=== PATIENT | female | born 1970 | race Caucasian/White ===

== ENCOUNTER → 2020-08-21 11:07 | Outpatient (BNVA) | payer OTHER, SELFPAY | PROVIDERS: PCP Internal Medicine; Visit Provider Hospitalist ==

== ENCOUNTER 2025-06-21 14:51 | Outpatient (AMB) | payer OTHER, SELFPAY ==
[2025-06-21 14:55] VITALS: BP 96/62; PULSE 104; O2SAT 100; BMI 26.2
--- NOTE | 2025-06-21 14:55 | MHC.OFFVIS ---
Vital Signs 06/21/25 14:55 Height 5 ft 6 in Weight 162 lb 0.636 oz BMI 26.2 BP 96/62 Blood Pressure Location Lt brachial Position Sitting Pulse 104 H Pulse Source Pulse Oximeter Pulse Oximetry (%) 100 Oxygen Delivery Method Room Air Intake Visit Reasons: Obstructive sleep apnea C Engineer Required: No Accompanied by: Self / Same As Patient Allergies doxycycline (From Vibramycin) Allergy (Severe, Verified 06/21/25 15:00) Swelling Throat HPI Comments Details: The patient is a 54-year-old woman with a known history of obstructive sleep apnea previously on CPAP in addition to morbid obesity. She did undergo gastric bypass surgery after worse she lost significant amount of weight. She did have multiple sleep studies after worsen demonstrating no evidence of any sleep apnea. At that time she stop using the CPAP. However, she still having difficulties with her daytime drowsiness. She has a hard time sleeping. He initially with an Ambien with partial improvement however she overdosed on the Ambien and therefore taken off it altogether. Currently she is taking gabapentin 600 at nighttime along with trazodone 25 mg and diazepam 2 mg q.h.s.. She states she is able to fall asleep but after sleeping the whole night she still wakes up tired. We did talk about hyper insomnia and potentially doing a multilead see sleep study but at this point we cannot do that due to the pandemic all the centers are closed that do this. Currently she is also on a stimulant anyways. She continues to have significant daytime drowsiness and headaches in the morning with an elevated [place] score of 14/24. She does have a partner who has complained of her snoring and also stay on a apneic episodes where he needs to help her time to decide to minimize the events. At this point the patient is willing to repeat the sleep study. No other medications could be added due to her significant polypharmacy and contraindications based on her past history. No evidence of any restless leg for periodic limb movement on her previous studies either. However, this should be reassessed to see if this is the potential area of treatment. In the meantime she is going to follow-up with primary care doctor about checking her all her vitamins and minerals to make sure that she is stable without any deficiencies in view of her significant surgery several years ago. The patient is here for pulmonary evaluation. The patient is a 54 year woman with known history of sleep apnea and daytime drowsiness. The patient also has a history of ADHD and does take Ritalin. The patient did have a sleep study in 2012 when she was found to have severe sleep apnea with an AHI of 53. Subsequently after that she did have gastric surgery for bariatric surgery and she lost significant amount of weight. She did have a repeat sleep study in 2018 which demonstrated no evidence of any sleep apnea. Although she did not have any significant REM sleep during the sleep study. Since she has been off her CPAP ever since then. She practices positional therapy. She does have a bed partner. She does have snoring at times. The patient does have daytime drowsiness. Specially today she does not take her Ritalin. She sometimes can take a nap and she can be sleeping 4 hours. Her [place] score usually is around 12/24. Therefore, the patient needs to have additional evaluation for underlying sleep apnea at this time. The patient also has had issues with tachycardia. Today the heart rate at rest was 103 beats per minute. And the patient denies any significant cardiac studies. Based on his significant tachyarrhythmias her significant daytime drowsiness and the REM related sleep disorder the patient does need an in-lab sleep study. Will request a in-lab sleep study this time and have her follow-up. In the meantime she has been using sleep aids including trazodone and lorazepam that appeared to be effective. Will follow-up in 3 months. [facility] Medical History (Updated 06/21/25 @ 22:05 by Ricardo Rose MD) Hypersomnia Tachycardia Insomnia ISABEL (obstructive sleep apnea) Social History (Updated 06/21/25 @ 15:04 by Citlaly Boston CMA) Patient Tobacco Use Status: Never used Tobacco Review of Systems Const Reports daytime sleepiness, Reports difficulty sleeping, Reports fatigue, Denies night sweats and Reports weight loss ENT Denies change in voice, Denies lip swelling, Denies mouth pain, Reports nasal congestion, Reports nasal discharge and Denies tongue swelling Card Denies chest pain Resp Denies cough GI Denies abdominal pain Musc Denies no additional complaints Neuro Denies Neuro-related abnormal movements Psych Reports as per HPI Endo Reports fatigue Ryan/Lymph Denies easy bleeding and Denies lymphadenopathy Aller/Immun Denies lip swelling and Denies tongue swelling Physical Exam Vital Signs: Last Vital Signs Pulse 104 H 06/21/25 14:55 BP 96/62 06/21/25 14:55 Pulse Ox 100 06/21/25 14:55 Oxygen Delivery Method Room Air 06/21/25 14:55 BMI result Body Mass Index 26.2 Const General: alert HEENT General nose exam: Abnormal external nose present and Nasal discharge present Eyes Pupils: Equal, round and reactive pupils present Neck Neck: Yes normal visual inspection, Yes full ROM and Yes no lymphadenopathy Chest Chest palpation & inspection: normal inspection of the chest Resp Effort & Inspection: normal respiratory effort Auscultation: clear to auscultation bilaterally Cardio Rate: tachycardic Rhythm: regular rhythm Heart sounds: S1 normal heart sound present and S2 normal heart sound present GI Palpation (GI): Soft to palpation and nontender Auscultation: normal bowel sounds General: Yes no CVA tenderness Back/Spine/Pelvis Back: no CVA tenderness Skin General skin exam: rashes and/or lesions noted Neuro Cranial nerves: Yes Equal, round and reactive pupils present Assessment & Plan Assessment & Plan (1) ISABEL (obstructive sleep apnea): Code(s): G47.33 - Obstructive sleep apnea (adult) (pediatric) Category: Medical (2) Insomnia: Comment: Code(s): G47.00 - Insomnia, unspecified Category: Medical Qualifiers: Insomnia type: primary Qualified Code(s): F51.01 - Primary insomnia Plan: continue Gabapentin and Trazadone at night (3) Tachycardia: Code(s): R00.0 - Tachycardia, unspecified Category: Medical (4) Hypersomnia: Code(s): G47.10 - Hypersomnia, unspecified Category: Medical Plan continue with sleep aids inlab PSG F/U with PCP re: Tachycardia F/U 2-3 months Orders: Orders RT PSG in-lab sleep study Today G47.10 - Hypersomnia, unspecified, G47.33 - Obstructive sleep apnea (adult) (pediatric), R00.0 - Tachycardia, unspecified Coding Level of Care Code New Pt Level 4 (39553) Diagnoses ISABEL (obstructive sleep apnea) G47.33 Primary insomnia F51.01 Insomnia type: primary Tachycardia R00.0 Hypersomnia G47.10 Time Spent (min) 36
--- OUTSIDE RECORDS SUMMARY | 2025-06-22 12:44 | XMS_ITS | Clinical Summary ---
Author Organization [facility] Address [address] [address] Phone Care Team Providers Care Night Coordinator Name Role Phone Pedro De La Torre MD Primary Care Provider [phone] Allergies Active Allergy Reactions Criticality Noted Date Comments Doxycycline Swelling,Throat Tightness Medium 7 Medications methylphenidate HCl 54 MG ER tablet Take 54 mg by mouth every morning. 5 Active LORazepam (ATIVAN) 1 MG tablet Take 1 mg by mouth 2 (two) times a day as needed. 4 Active gabapentin (NEURONTIN) 300 MG capsule Take 300 mg by mouth 3 (three) times a day. 5 Active estradioL (ESTRACE) 0.01 % (0.1 mg/gram) vaginal cream Place 2 g vaginally 2 (two) times a week. 4 Active atorvastatin (LIPITOR) 20 MG tablet Take 1 tablet by mouth every morning. 4 Active busPIRone (BUSPAR) 10 MG tablet Take 10 mg by mouth 2 (two) times a day. Active DULoxetine (CYMBALTA) 60 MG capsule Take 60 mg by mouth daily. Active trospium (SANCTURA) 20 mg tablet Take 20 mg by mouth daily. Active estradioL (ESTRACE) 1 MG tablet Take 2 mg by mouth daily. Active traZODone (DESYREL) 50 MG tablet Take 50 mg by mouth nightly at bedtime. Active magnesium citrate 125 mg Cap Take 250 mg by mouth. Active omega-3 fatty acids-fish oil 340-1,000 mg Cap Take by mouth daily. Active cholecalciferol (VITAMIN D3) 25 MCG (1,000 unit) tablet Take 1,000 Units by mouth daily. Active levonorgestreL (LILETTA) 20.4 mcg/24 hr (8 yrs) 52 mg IUD 1 each by Intrauterine route. Active TRULICITY 3 mg/0.5 mL subcutaneous injectionIndicat ions:Type 2 diabetes mellitus with obesity INJECT 0.5 ML (3 MG TOTAL) UNDER THE SKIN EVERY 7 DAYS *01/07 2 mL 3 Active Active Problems Problem Noted Date Diagnosed Date Chronic low back pain 12/29/2024 Eczema 10/20/2024 Type 2 diabetes mellitus wit hout complication, without long-term current use of insulin 09/26/2024 Assessment & Plan (05/13/2025 7:10 PM EDT): Significant improvement in A1c to 5.9% x 12/2023. Patient was started on Trulicity in 09/2024, dose was gradually increased to 3 mg weekly in 12/2024. This dose has quieted down her food noise. She has a hard time feeding herself, does not like to cook. Frequently skips lunch. Working with therapist. She is scheduled to see her associate team physician Dr. Milton talbert with history of sleep apnea, not using CPAP since gastric sleeve surgery in 2017. No long-term complications from diabetes. No SMBG. -We discussed option to try decreasing the Trulicity to see if her eating habits could improve but she would like to keep the current dose because it helped cutting out the binge eating. -Recommended to revisit her dietitian to work on increasing protein intake -Increase physical activity to help keep muscle mass. -Labs soon, call for result -Follow-up with Winter as scheduled on 07/29/2025 Assessment & Plan (12/29/2024 8:39 AM EDT): Control is reasonable based upon the patient's last A1C of 6.9%. Her daily control is not known due to not checking her glucose levels. She is not using any medications to cause hypoglycemia and therefore doesn't need to check her glucose levels. She is tolerating the 1.5 mg dose of trulicity well but does not find it quiets the food noise enough. Will try increasing her dose to 3 mg weekly to see if this helps improve the food noise for her. If her A1C is elevated will try switching to mounjaro to see if this better controls her glucose levels and the food noise. Continue to work on eating healthier and trying to be active. To call or message with any issues managing her glucose levels. Up to date with ophtho. Labs ordered. I have maintained a long-term, longitudinal relationship with this patient, overseeing care of chronic conditions, including diabetes. This care relationship has significantly influenced my decision-making and treatment plans during today's encounter. 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 She was diagnosed with type 2 diabetes in 2003. She was treated with metformin between 2004 and 2016 then had gastric sleeve surgery in 2016 leading to 54 pounds of weight loss in about 6 months. She was able to stop her metformin and CPAP about a month after the surgery. She has not tried any other diabetes medication. Her A1c has been gradually increasing, latest was 6.9% in 08/2024 from 6.7% in 11/2023. She denies any long-term complications. On exam decreased vibratory sensation only on right foot unlikely related to diabetes. B12 level was normal in 08/2024. She has been struggling with binge eating and regained about 17 pounds. She has worked with a dietitian and attended a program at the [facility]. Currently looking for a therapist. Discussed pathophysiology of diabetes and complications of uncontrolled diabetes. Discussed progressive nature of disease. Discussed rationale & goals for control. Role of diet, exercise, medications. Role of & goals for HbA1c & SMBG. Reviewed options to improve control with risks & benefits, including intensification of lifestyle & available medications. -No contraindication to try a GLP-1 agonist. Will start Trulicity 0.75 mg weekly. Hope she could reduce binge eating on this medication. We discussed titration monthly if needed. Patient to call if any side effect. -Continue to work on eating healthy & keeping active. -Consider repeating sleep study considering increasing fatigue with weight regain -Labs planned by PCP in 3 months -Yearly dilated eye exam, next due in 04/2025 Anxiety disorder 09/30/2023 Depressive disorder 09/30/2023 CTS (carpal tunnel syndrome) 09/08/2017 HLD (hyperlipidemia) 09/08/2017 HTN (hypertension) 09/08/2017 Encounters Date Type Department Care Team Description 05/10/2025 8:20 AM EDT Office Visit [facility] [address] [place] [address] Vanna Godinez MD Type 2 diabetes mellitus without complication, without long-term current use of insulin (Primary Dx) 04/27/2025 Refill [facility] [address] [place] [address] Alisia Schmitz PA-C Medication Refill from Last 3 Months Family History Medical History Relation Comments Diabetes Father diet controlled DM2 Hyperlipidemia Mother Diabetes Sister DM2 controlled w metformin Relation Status Comments Father Mother Sister Social History Tobacco Use Types Packs/Day Years Used Date Smoking Tobacco: Never Smokeless Tobacco: Never Tobacco Cessation:Counseling Given: Not Answered Alcohol Use Standard Drinks/Week Comments Not Currently 0 (1 standard drink = 0.6 oz pur e alcohol) About a drink a month Education Answer Date Recorded Are you interested in more education? Not on nayeli e 02/23/2024 Are you concerned about learning? Not on file 02/23/2024 No 02/23/2024 No 02/23/2024 Digital Access Answer Date Recorded No 02/23/2024 No 02/23/2024 Reliable internet access at home? Not on file 02/23/2024 Device with a working camera? Not on file Comments Unknown Sex and Gender Information Value Date Recorded Sex Assigned at Female 05/03/2025 5:37 PM EDT Legal Sex Female 11:45 AM EDT Gender Identity Female 05/03/2025 5:37 PM EDT Sexual Orientation Straight 05/03/2025 5: 37 PM EDT Last Filed Vital Signs Vital Sign Reading Time Taken Comments Blood Pressure 112/64 05/10/2025 8:34 AM EDT Pulse 68 05/10/2025 8:34 AM EDT Temperature - - Respiratory Rate - - Oxygen Saturation 99% 05/10/2025 8:34 AM EDT Inhaled Oxygen Concentration - - Weight 74.1 kg (163 lb 6.4 oz) 05/10/2025 8:34 A M EDT Height 168.3 cm (5' 6.26 ) 05/10/2025 8:34 AM ED T Body Mass Index 26.17 05/10/2025 8:34 AM EDT Plan of Treatment Upcoming Encounters Date Type Department Care Team (Late st Contact Info) Description 07/29/2025 9:00 AM EST Office Visit [facility] [address] [place] [address] Alisia Schmitz PA-C [address] [place] [address] [email or web address] Maintenance Due Date Last Done Comments Adult Td,Tdap Booster 1971 DEPRESSION SCREENING 1983 HEPATITIS C SCREENING 1989 HIV ONE-TIME SCREENING (18-6 5 YEARS) 1989 PNEUMOCOCCAL VACCINES (50+ y ears) (1 of 2 - PCV) 1990 PAP SMEAR 1992 MAMMOGRAM 2011 COLOGUARD 2016 COLONOSCOPY 2016 COLORECTAL CANCER SCREENING 2016 FIT TEST 2016 FOBT 2016 SIGMOIDOSCOPY 2016 VIRTUAL COLONOSCOPY 2016 ZOSTER VACCINES (1 of 2) 2021 DIABETIC EYE EXAM 09/13/2024 URINE MICROALBUMIN/CREATININ E RATIO 09/13/2024 INFLUENZA VACCINE (#1) 2025 COVID-19 VACCINE ( - 2024-2 6 season) 2025 HEMOGLOBIN A1C 07/01/2025 12/29/2024 BLOOD PRESSURE 11/08/2025 05/10/2025 RSV VACCINE (1 - 1-dose 75+ series) 2046 SMOKING STATUS SCREENING (On ce After 26 Yrs) Completed 05/10/2025 HEPATITIS A VACCINES Aged Out No long er eligible based on patient's age to complete this topic HIB VACCINES Aged Out No longer eligi ble based on patient's age to complete this topic IPV VACCINES Aged Out No longer eligi ble based on patient's age to complete this topic MENINGOCOCCAL VACCINES (ACWY) Aged Out No longer eligible based on patient's age to complete this topic MENINGOCOCCAL VACCINES (B) Aged Out N o longer eligible based on patient's age to complete this topic Medical Devices Not on file Procedures Procedure Name Priority Date/Time Associated Diagnosis Comments HEMOGLOBIN A1C Routine 12/29/2024 8:47 AM EDT Type 2 diabetes mellitus with obesity from Last 3 Months or Most Recently Relevant to Health Maintenance Results * (ABNORMAL) Hemoglobin A1c (12/29/2024 8:47 AM EDT) HEMOGLOBIN A1C 5.9(H) 4.3 - 5.8 % [facility] Blood 12/29/2024 8:47 AM EDT 12/29/2024 8:52 AM EDT us Alisia Schmitz PA-C LAB BLOOD BKR RENE WALKER Final Result [address] [id number] from Last 3 Months or Most Recently Relevant to Health Maintenance [place] [address] [place] [address]O [facility] [address] [place], [place] [address]O O [facility] HMO Care Teams Night Coordinator Relationship Specialty Start Date End Date Pedro De La Torre MD [address] [place] [phone] [email or web address] PCP - General Internal Medicine 09/13/24 Additional Source Comments The information contained in this document represents components of the legal health record. It is not the complete legal health record.[facility]
== END 2025-06-21 15:29 | disposition home or self-care (01) ==
LOC: HO.HPS 14:51
PROVIDERS: PCP Internal Medicine; Referring Provider Internal Medicine; Visit Provider Hospitalist
DX: G47.33 Obstructive sleep apnea (adult) (pediatric) (principal); F51.01 Primary insomnia; R00.0 Tachycardia, unspecified; G47.10 Hypersomnia, unspecified
CPT/HCPCS: 99204